=== PATIENT | female | born 1965 | race Caucasian/White ===

== ENCOUNTER → 2020-12-24 | Outpatient (CLI) | payer OTHER ==
--- NOTE | 2020-12-24 12:01 | RAD ---
Examination: Nonvascular extremity ultrasound INDICATION: 55-year-old woman with complaints of mass in the left groin and back. COMPARISON: None. TECHNIQUE: Grayscale and color Doppler imaging of the patient's reported area of mass in the left groin and dorsal suprailiac subcutaneous soft tissues was performed. FINDINGS: Normal subcutaneous fat is identified as well as a normal-appearing superficial left inguinal lymph node measuring 2.3 cm in length with normal cortical thickness. No mass, fluid collection or adenopathy is identified with ultrasound. IMPRESSION: No sonographic mass identified in the patient's reported areas of clinical concern.
== END ==
LOC: US 11:08
PROVIDERS: ATTEND Family Medicine
DX: R19.09 Other intra-abdominal and pelvic swelling, mass and lump (principal)
CPT/HCPCS: 76881